=== PATIENT | male | born 1945 | race Caucasian/White ===

== ENCOUNTER 2022-04-03 16:41 | Emergency (ER) | payer MEDICARE, MEDICAID ==
[2022-04-03] MEDS ORDERED: Sodium Chloride 0.9% 10 ML Syringe FLUSH PRN (17:12)
[2022-04-03 18:17] LABS: ESTIMATED GFR 57 mL/min (>60)
[2022-04-03 20:09] LABS: CORONAVIRUS COVID-19 NAA NEGATIVE (NEGATIVE)
== END 2022-04-03 19:31 ==
LOC: JD.ED 16:41
DX: I44.2 Atrioventricular block, complete (principal); R00.1 Bradycardia, unspecified; I10 Essential (primary) hypertension; Z20.822 Contact with and (suspected) exposure to COVID-19
CPT/HCPCS: 0241U; 36415; 71045; 80053; 83735; 83880; 84484; 85025; 93005; 99285; J3490; 93010

== ENCOUNTER 2022-09-30 16:51 | Inpatient (IN) | payer MEDICAID, MEDICARE, OTHER ==
[2022-09-30] MEDS ORDERED: Sodium Chloride 0.9% 10 ML Syringe FLUSH PRN (16:58)
[2022-09-30] MEDS ORDERED: Sodium Chloride 0.9% 1,000 ML IV SCH ×2 (17:00→23:45)
[2022-09-30 17:23] LABS: BASOPHILS ABSOLUTE AUTO 0.03 K/mm3 (0.01-0.08); BASOPHILS PERCENT AUTO 0.3 % (0.1-1.2); EOSINOPHILS ABSOLUTE AUTO 0.18 K/mm3 (0.04-0.54); EOSINOPHILS PERCENT AUTO 1.8 (0.8-7.0); HEMATOCRIT 25.2 % (40.1-51.0); IMMATURE GRAN ABSOLUTE AUTO 0.21 K/mm3 (0.00-0.10); IMMATURE GRAN PERCENT AUTO 2.1 % (<=1.0); LYMPHOCYTES ABSOLUTE AUTO 2.31 K/mm3 (1.32-3.57); LYMPHOCYTES PERCENT AUTO 22.6 % (21.8-53.1); MEAN CORPUSCULAR HEMOGLOBIN 29.2 pg (25.7-32.2); MEAN CORPUSCULAR HGB CONC 30.2 g/dl (32.2-35.5); MEAN CORPUSCULAR VOLUME 96.9 fl (79.0-92.2); MEAN PLATELET VOLUME 9.7 fl (9.4-12.3); MONOCYTES ABSOLUTE AUTO 0.71 K/mm3 (0.30-0.82); NEUTROPHILS ABSOLUTE AUTO 6.76 K/mm3 (1.78-5.38); NEUTROPHILS PERCENT AUTO 66.2 % (34.0-67.9); PLATELET COUNT,PLT 237 K/mm3 (163-337)
[2022-09-30 17:27] LABS: HEMOGLOBIN 7.6 gm/dl (13.7-17.5)
[2022-09-30] MEDS ORDERED: Sodium Chloride 0.9% 500 ML IV ONE ×3 (17:39→21:01)
[2022-09-30 18:29] LABS: A/G RATIO 0.6 (1-2); ALBUMIN 1.2 g/dl (3.4-5.0); ANION GAP 15.9 (5-15); BILIRUBIN TOTAL 0.4 mg/dL (0.2-1.0); BUN/CREATININE RATIO 50.7 (14-18); C-REACTIVE PROTEIN 0.3 mg/dL (<1.0); CREATININE 1.4 mg/dL (0.7-1.3); EST CRCL DRUG DOSING (CG) 43.43 mL/min; PROTEIN TOTAL,TP 3.4 g/dl (6.4-8.2)
[2022-09-30 18:31] LABS: CALCIUM 5.2 mg/dL (8.5-10.1); POTASSIUM,K 2.9 mEq/L (3.5-5.1)
[2022-09-30] MEDS ORDERED: Calcium Gluconate 10% 1 GM/10 ML SDV IVPUSH ONE (18:36)
[2022-09-30] MEDS ORDERED: Magnesium Sulfate/Water 2 GM in Premix Bag 1 BAG IV ONE (18:46)
[2022-09-30] MEDS: Potassium Chloride 10 MEQ in Premix Bag 1 BAG IV SCH ×4 (18:52→23:10)
[2022-09-30 20:22] LABS: APPEARANCE,URINE CLOUDY (Clear); BILIRUBIN,URINE NEGATIVE (Negative); COLOR,URINE YELLOW (Yellow); GLUCOSE,URINE NEGATIVE (Negative); KETONES,URINE TRACE (Negative); LEUKOCYTE ESTERASE,URINE 2+ (Negative); NITRITE,URINE NEGATIVE (Negative); OCCULT BLOOD,URINE 1+ (Negative); PROTEIN,URINE 1+ (Negative); UROBILINOGEN,URINE 0.2 (0.2-1.0)
[2022-09-30 20:35] LABS: BACTERIA,URINE MANY /hpf (FEW); EPITHELIAL CELLS,URINE 0-5 /hpf (0-5); WBC CLUMPS,URINE FEW /hpf (NOT SEEN); WBC,URINE >100 /hpf (0-5)
[2022-09-30 20:36] LABS: MUCUS,URINE NOT SEEN /hpf (FEW)
[2022-09-30] MEDS ORDERED: cefTRIAXone 2 GM in Sodium Chloride 0.9% 100 ML IV ONE (20:37)
[2022-09-30] MEDS ORDERED: Ondansetron 8 MG in Sodium Chloride 0.9% 50 ML IV PRN (21:28)
[2022-09-30] MEDS ORDERED: Acetaminophen 325 MG Tab PO PRN (21:28)
[2022-09-30] MEDS ORDERED: Ondansetron 4 MG Tab.DIS PO PRN (21:28)
[2022-09-30] MEDS ORDERED: diphenhydrAMINE 50 MG/ML SDV IV ONE (22:01)
[2022-09-30] MEDS ORDERED: NS + KCl 20mEq/L 1,000 ML IV SCH (22:15)
[2022-09-30] MEDS: Pantoprazole 40 MG Vial IVPUSH SCH (22:20)
[2022-09-30 22:48] LABS: LACTIC ACID 1.8 mmol/L (0.4-2.0)
[2022-09-30 22:51] LABS: INR 1.12; PROTHROMBIN TIME 11.9 SECONDS (9.7-12.0); PTT,PARTIAL THROMBOPLSTIN TIME 22.5 SECONDS (21.7-31.4)
[2022-10-01 02:24] LABS: HEMATOCRIT 32.9 % (40.1-51.0)
[2022-10-01 02:41] LABS: BUN/CREATININE RATIO 54.3 (14-18); CREATININE 2.3 mg/dL (0.7-1.3); EST CRCL DRUG DOSING (CG) 26.43 mL/min; MAGNESIUM 2.3 mg/dL (1.8-2.4)
[2022-10-01 02:48] LABS: HEMOGLOBIN 10.3 gm/dl (13.7-17.5)
[2022-10-01 02:51] LABS: CALCIUM 8.6 mg/dL (8.5-10.1)
[2022-10-01] MEDS: Sodium Chloride 0.9% 1,000 ML IV SCH ×2 (03:29→14:37)
[2022-10-01 07:28] LABS: BASOPHILS ABSOLUTE AUTO 0.04 K/mm3 (0.01-0.08); BASOPHILS PERCENT AUTO 0.2 % (0.1-1.2); EOSINOPHILS ABSOLUTE AUTO 0.05 K/mm3 (0.04-0.54); EOSINOPHILS PERCENT AUTO 0.2 (0.8-7.0); HEMOGLOBIN 11.6 gm/dl (13.7-17.5); IMMATURE GRAN ABSOLUTE AUTO 0.28 K/mm3 (0.00-0.10); IMMATURE GRAN PERCENT AUTO 1.4 % (<=1.0); LYMPHOCYTES ABSOLUTE AUTO 3.05 K/mm3 (1.32-3.57); LYMPHOCYTES PERCENT AUTO 15.1 % (21.8-53.1); MEAN CORPUSCULAR HEMOGLOBIN 30.4 pg (25.7-32.2); MEAN CORPUSCULAR HGB CONC 32.2 g/dl (32.2-35.5); MEAN CORPUSCULAR VOLUME 94.2 fl (79.0-92.2); MEAN PLATELET VOLUME 9.8 fl (9.4-12.3); MONOCYTES ABSOLUTE AUTO 1.86 K/mm3 (0.30-0.82); MONOCYTES PERCENT AUTO 9.2 % (5.3-12.2); NEUTROPHILS ABSOLUTE AUTO 14.88 K/mm3 (1.78-5.38); NEUTROPHILS PERCENT AUTO 73.9 % (34.0-67.9); PLATELET COUNT,PLT 266 K/mm3 (163-337); RED BLOOD CELL COUNT 3.82 M/mm3 (4.63-6.08); WHITE BLOOD CELL COUNT,WBC 20.16 K/mm3 (4.23-9.07)
[2022-10-01 07:52] LABS: A/G RATIO 0.6 (1-2); ALBUMIN 2.2 g/dl (3.4-5.0); ANION GAP 16.6 (5-15); BILIRUBIN TOTAL 0.6 mg/dL (0.2-1.0); BUN/CREATININE RATIO 59.5 (14-18); CALCIUM 8.8 mg/dL (8.5-10.1); CREATININE 2.1 mg/dL (0.7-1.3); EST CRCL DRUG DOSING (CG) 28.95 mL/min; MAGNESIUM 2.3 mg/dL (1.8-2.4); POTASSIUM,K 5.6 mEq/L (3.5-5.1); PROTEIN TOTAL,TP 5.9 g/dl (6.4-8.2)
[2022-10-01 08:43] LABS: SLIDE REVIEW ABNORMAL SMEAR
[2022-10-01] MEDS: Pantoprazole 40 MG Vial IVPUSH SCH ×2 (09:25→21:20)
[2022-10-01] MEDS ORDERED: Lidocaine 1% 4 ML ONE (11:42)
[2022-10-01] MEDS ORDERED: Rocuronium 50 MG/5 ML Vial ONE (11:42)
[2022-10-01] MEDS ORDERED: Propofol 200 MG/20 ML SDV ONE (11:42)
[2022-10-01] MEDS ORDERED: Ondansetron 4 MG/2 ML SDV ONE (11:42)
[2022-10-01] MEDS ORDERED: Midazolam 1 MG/ML 2 ML SDV ONE (11:42)
[2022-10-01] MEDS ORDERED: fentaNYL 100 MCG/2 ML SDV ONE (11:43)
[2022-10-01] MEDS ORDERED: Sugammadex Sodium 200 MG/2 ML VIAL ONE (11:55)
[2022-10-01] MEDS ORDERED: Phenylephrine 1% 10 MG/ML SDV ONE (12:02)
[2022-10-01] MEDS ORDERED: Lactated Ringers 1,000 ML ONE (12:46)
[2022-10-01] MEDS ORDERED: Ondansetron 4 MG/2 ML SDV IVPUSH PRN (13:07)
[2022-10-01] MEDS ORDERED: fentaNYL 100 MCG/2 ML SDV IVPUSH PRN (13:07)
[2022-10-01] MEDS ORDERED: HYDROmorphone 0.5 MG/0.5 ML Syringe IVPUSH PRN (13:07)
[2022-10-01] MEDS ORDERED: Carvedilol 3.125 MG Tab PO ONE (17:00)
[2022-10-01 17:02] LABS: BASOPHILS ABSOLUTE AUTO 0.04 K/mm3 (0.01-0.08); BASOPHILS PERCENT AUTO 0.2 % (0.1-1.2); EOSINOPHILS ABSOLUTE AUTO 0.03 K/mm3 (0.04-0.54); EOSINOPHILS PERCENT AUTO 0.2 (0.8-7.0); HEMATOCRIT 32.7 % (40.1-51.0); HEMOGLOBIN 10.2 gm/dl (13.7-17.5); IMMATURE GRAN ABSOLUTE AUTO 0.29 K/mm3 (0.00-0.10); IMMATURE GRAN PERCENT AUTO 1.5 % (<=1.0); LYMPHOCYTES ABSOLUTE AUTO 3.86 K/mm3 (1.32-3.57); LYMPHOCYTES PERCENT AUTO 19.3 % (21.8-53.1); MEAN CORPUSCULAR HEMOGLOBIN 29.7 pg (25.7-32.2); MEAN CORPUSCULAR HGB CONC 31.2 g/dl (32.2-35.5); MEAN CORPUSCULAR VOLUME 95.3 fl (79.0-92.2); MEAN PLATELET VOLUME 9.8 fl (9.4-12.3); MONOCYTES ABSOLUTE AUTO 2.69 K/mm3 (0.30-0.82); MONOCYTES PERCENT AUTO 13.5 % (5.3-12.2); NEUTROPHILS ABSOLUTE AUTO 13.04 K/mm3 (1.78-5.38); NEUTROPHILS PERCENT AUTO 65.3 % (34.0-67.9); PLATELET COUNT,PLT 237 K/mm3 (163-337); RED BLOOD CELL COUNT 3.43 M/mm3 (4.63-6.08); WHITE BLOOD CELL COUNT,WBC 19.95 K/mm3 (4.23-9.07)
[2022-10-01 17:16] LABS: ANION GAP 16.5 (5-15); POTASSIUM,K 4.5 mEq/L (3.5-5.1)
[2022-10-01] MEDS: cefTRIAXone 1 GM in Sodium Chloride 0.9% 100 ML IV SCH (20:21)
[2022-10-01] MEDS ORDERED: cefTRIAXone 1 GM Vial IV SCH (21:00)
[2022-10-01] MEDS ORDERED: oxyCODONE 5 MG Tab PO PRN (21:06)
[2022-10-02 06:02] LABS: A/G RATIO 0.6 (1-2); ALBUMIN 2.1 g/dl (3.4-5.0); ANION GAP 15.2 (5-15); BILIRUBIN TOTAL 0.3 mg/dL (0.2-1.0); BUN/CREATININE RATIO 75.9 (14-18); CALCIUM 8.9 mg/dL (8.5-10.1); CREATININE 1.7 mg/dL (0.7-1.3); EST CRCL DRUG DOSING (CG) 35.76 mL/min; MAGNESIUM 2.1 mg/dL (1.8-2.4); POTASSIUM,K 4.2 mEq/L (3.5-5.1); PROTEIN TOTAL,TP 5.8 g/dl (6.4-8.2)
[2022-10-02 06:08] LABS: BASOPHILS ABSOLUTE AUTO 0.04 K/mm3 (0.01-0.08); BASOPHILS PERCENT AUTO 0.2 % (0.1-1.2); EOSINOPHILS ABSOLUTE AUTO 0.16 K/mm3 (0.04-0.54); HEMATOCRIT 31.3 % (40.1-51.0); HEMOGLOBIN 9.8 gm/dl (13.7-17.5); IMMATURE GRAN ABSOLUTE AUTO 0.17 K/mm3 (0.00-0.10); LYMPHOCYTES PERCENT AUTO 18.3 % (21.8-53.1); MEAN CORPUSCULAR HEMOGLOBIN 29.8 pg (25.7-32.2); MEAN CORPUSCULAR HGB CONC 31.3 g/dl (32.2-35.5); MEAN CORPUSCULAR VOLUME 95.1 fl (79.0-92.2); MEAN PLATELET VOLUME 10.3 fl (9.4-12.3); MONOCYTES ABSOLUTE AUTO 1.81 K/mm3 (0.30-0.82); NEUTROPHILS ABSOLUTE AUTO 11.23 K/mm3 (1.78-5.38); NEUTROPHILS PERCENT AUTO 68.5 % (34.0-67.9); PLATELET COUNT,PLT 197 K/mm3 (163-337); RED BLOOD CELL COUNT 3.29 M/mm3 (4.63-6.08); WHITE BLOOD CELL COUNT,WBC 16.41 K/mm3 (4.23-9.07)
[2022-10-02] MEDS: Carvedilol 3.125 MG Tab PO SCH ×2 (06:43→16:12)
[2022-10-02 08:19] LABS: SLIDE REVIEW ABNORMAL SMEAR
[2022-10-02] MEDS ORDERED: FEBUXOSTAT 80 MG PO SCH (09:00)
[2022-10-02] MEDS ORDERED: Propofol 200 MG/20 ML SDV ONE (13:38)
[2022-10-02] MEDS ORDERED: fentaNYL 100 MCG/2 ML SDV ONE (13:38)
[2022-10-02] MEDS ORDERED: Lidocaine 1% 6 ML ONE (13:39)
[2022-10-02] MEDS ORDERED: Phenylephrine 1% 10 MG/ML SDV ONE (13:57)
[2022-10-02] MEDS: Sodium Chloride 0.9% 1,000 ML IV SCH (16:13)
[2022-10-02] MEDS: Pravastatin 20 MG Tab PO SCH (17:29)
[2022-10-02] MEDS: Pantoprazole 40 MG Vial IVPUSH SCH ×2 (17:30→22:22)
[2022-10-02] MEDS: Sucralfate 1 GM Tab PO SCH ×2 (18:04→22:22)
[2022-10-02] MEDS: cefTRIAXone 1 GM in Sodium Chloride 0.9% 100 ML IV SCH (20:47)
[2022-10-03 05:53] LABS: BASOPHILS ABSOLUTE AUTO 0.02 K/mm3 (0.01-0.08); BASOPHILS PERCENT AUTO 0.2 % (0.1-1.2); EOSINOPHILS ABSOLUTE AUTO 0.17 K/mm3 (0.04-0.54); EOSINOPHILS PERCENT AUTO 1.6 (0.8-7.0); HEMATOCRIT 27.1 % (40.1-51.0); HEMOGLOBIN 8.5 gm/dl (13.7-17.5); IMMATURE GRAN ABSOLUTE AUTO 0.09 K/mm3 (0.00-0.10); IMMATURE GRAN PERCENT AUTO 0.9 % (<=1.0); LYMPHOCYTES ABSOLUTE AUTO 1.86 K/mm3 (1.32-3.57); LYMPHOCYTES PERCENT AUTO 17.9 % (21.8-53.1); MEAN CORPUSCULAR HGB CONC 31.4 g/dl (32.2-35.5); MEAN CORPUSCULAR VOLUME 95.8 fl (79.0-92.2); MONOCYTES ABSOLUTE AUTO 1.43 K/mm3 (0.30-0.82); MONOCYTES PERCENT AUTO 13.7 % (5.3-12.2); NEUTROPHILS ABSOLUTE AUTO 6.84 K/mm3 (1.78-5.38); NEUTROPHILS PERCENT AUTO 65.7 % (34.0-67.9); PLATELET COUNT,PLT 163 K/mm3 (163-337); RED BLOOD CELL COUNT 2.83 M/mm3 (4.63-6.08); WHITE BLOOD CELL COUNT,WBC 10.41 K/mm3 (4.23-9.07)
[2022-10-03] MEDS: Carvedilol 3.125 MG Tab PO SCH ×2 (06:50→16:01)
[2022-10-03] MEDS: Sucralfate 1 GM Tab PO SCH ×4 (06:50→21:32)
[2022-10-03] MEDS: Pantoprazole 40 MG Tab.CR PO SCH ×2 (09:02→15:47)
[2022-10-03] MEDS: Pravastatin 20 MG Tab PO SCH (09:02)
[2022-10-03 15:09] LABS: HEMATOCRIT 27.5 % (40.1-51.0); HEMOGLOBIN 8.6 gm/dl (13.7-17.5); MEAN CORPUSCULAR HEMOGLOBIN 30.1 pg (25.7-32.2); MEAN CORPUSCULAR HGB CONC 31.3 g/dl (32.2-35.5); MEAN CORPUSCULAR VOLUME 96.2 fl (79.0-92.2); MEAN PLATELET VOLUME 9.7 fl (9.4-12.3); PLATELET COUNT,PLT 175 K/mm3 (163-337); RED BLOOD CELL COUNT 2.86 M/mm3 (4.63-6.08); WHITE BLOOD CELL COUNT,WBC 11.91 K/mm3 (4.23-9.07)
[2022-10-03] MEDS: Sulfamethoxazole/Trimethoprim 800-160 MG Tab PO SCH (21:32)
[2022-10-04] MEDS: Pantoprazole 40 MG Tab.CR PO SCH (05:30)
[2022-10-04] MEDS: Carvedilol 3.125 MG Tab PO SCH (06:23)
[2022-10-04] MEDS: Sucralfate 1 GM Tab PO SCH ×2 (06:25→12:26)
[2022-10-04 07:17] LABS: HEMATOCRIT 26.2 % (40.1-51.0); HEMOGLOBIN 8.3 gm/dl (13.7-17.5)
[2022-10-04] MEDS: Sulfamethoxazole/Trimethoprim 800-160 MG Tab PO SCH (09:10)
[2022-10-04] MEDS: Pravastatin 20 MG Tab PO SCH (09:10)
== END 2022-10-04 13:01 | disposition home or self-care (01) | DRG 871 ==
LOC: JD.ED 16:51 → JD.ICU 21:59
PROVIDERS: ADMIT Emergency Medicine; ATTEND Internal Medicine
PROC: 3E03329 Introduction of Other Anti-infective into Peripheral Vein, Percutaneous Approach (ICD-10-PCS; 2022-09-30)
PROC: 30233N1 Transfusion of Nonautologous Red Blood Cells into Peripheral Vein, Percutaneous Approach (ICD-10-PCS; 2022-09-30)
PROC: 0DJ08ZZ Inspection of Upper Intestinal Tract, Via Natural or Artificial Opening Endoscopic (ICD-10-PCS; 2022-10-01)
PROC: 0DJ08ZZ Inspection of Upper Intestinal Tract, Via Natural or Artificial Opening Endoscopic (ICD-10-PCS; principal; 2022-10-02)
DX: A41.9 Sepsis, unspecified organism (principal); K26.4 Chronic or unspecified duodenal ulcer with hemorrhage; L03.116 Cellulitis of left lower limb; N30.00 Acute cystitis without hematuria; E87.6 Hypokalemia; E83.42 Hypomagnesemia; E86.0 Dehydration; E83.51 Hypocalcemia; D64.9 Anemia, unspecified; I10 Essential (primary) hypertension; B96.1 Klebsiella pneumoniae [K. pneumoniae] as the cause of diseases classified elsewhere; E83.59 Other disorders of calcium metabolism; Z79.82 Long term (current) use of aspirin; Z95.0 Presence of cardiac pacemaker; Z79.899 Other long term (current) drug therapy
CPT/HCPCS: 36415; 71045; 80053; 81001; 83605; 83735; 83880; 84484; 85025; 86140; 86850; 86900; 86901; 86922; 87040 ×2; 87086; 87088; 87186; 93005; 96361; 96365; 96366; 96367; 96368; 96375; 96376; 99285; J0612; J3475; J3480 ×3; J7030 ×4; 00731; 36430; 80048; 80051; 82947; 83970; 84550; 85014; 85018; 85027; 85610; 85730; 93010; 97161-GP; 99100; 99140; 99223; 99232; A9270-GY; C9113; J0696; J1200; J2250; J2370; J2405; J2704; J3010; J3490; J7120; P9016